=== PATIENT | male | born 1950 | race Caucasian/White ===

== ENCOUNTER → 2023-06-12 | Emergency (ER) | payer OTHER ==
[~2023-06-12] MED LIST: ASPIRIN 81 MG CHEWABLE TABLET ONE; AZITHROMYCIN 500 MG INJ IVPB ONE; CEFTRIAXONE 1000 MG/VIAL ONE; LABETALOL 20 MG/4ML SYRINGE IV ONE; NA CHLORIDE 0.9% 1,000 ML ONE; NA CHLORIDE 0.9% 250 ML ONE; POTASSIUM CL SA 10 MEQ TAB PO ONE
--- NOTE | 2023-06-12 15:18 | RAD REPORT ---
EXAM DESCRIPTION: Daniel Single View06/12/2023 3:06 pm CLINICAL HISTORY: eval for pna COMPARISON: No comparisons TECHNIQUE: Portable AP view of the chest. FINDINGS: Faint right midlung perihilar opacity with prominence of the right hilum as well, findings may represent central airspace opacification in the setting of pneumonia, although possibility of a mass with adjacent hilar adenopathy cannot be excluded. Possible opacity versus prominent costochondr al junction projecting at the right lower lung. No pneumothorax or effusion. The cardiomediastinal c ontours are otherwise unremarkable. IMPRESSION: Right hilar and mid to lower lung parenchymal abnormalities as above.
[2023-06-12 16:03] LABS: Absolute Lymphocytes (CBC) 2.4 K/uL (0.7-4.9); Hematocrit 41.2 % (39.6-49.0); Lymphocytes % 26.2 % (15.3-44.8); MCV 88.9 fL (80-100); MPV 7.8 fL (7.6-11.3); Platelets 340 thou/uL (152-406); RBC Red Blood Cell Count 4.64 M/uL (4.33-5.43)
[2023-06-12 16:23] LABS: Bilirubin Total 0.6 mg/dL (0.2-1.0); Potassium 2.7 mEq/L (3.5-5.1); Protein, Total 10.4 g/dL (6.4-8.2)
[2023-06-12 16:27] LABS: Troponin High Sensitivity 72.8 pg/mL (<58.9)
--- NOTE | 2023-06-12 17:28 | RAD REPORT ---
EXAM DESCRIPTION: CT - Head Brain Wo Cont - 06/12/2023 4:48 pm CLINICAL HISTORY: AMS COMPARISON: No comparisons TECHNIQUE: Noncontrast head CT images were obtained without IV contrast. Multiplanar reformats were generated and reviewed. All CT scans are performed using dose optimization technique as appropriate and may include automated exposure control or mA/KV adjustment according to patient size. FINDINGS: No intracranial hemorrhage, mass, or edema. Midline structures are unremarkable. Mild diffuse parenchymal volume loss commensurate with age. Ventricular caliber otherwise within norm al limits. Punctate focus of near CSF density in the right sub insular region, nonspecific but may represent a p rominent perivascular space. Hamilton-white matter differentiation is otherwise preserved, without eviden ce of acute infarct. No abnormal extra-axial fluid collections. Mastoid air cells and visualized portions of the paranasal sinuses are clear. No acute bony findings. IMPRESSION: No evidence of an acute intracranial process. Findings as above.
--- NOTE | 2023-06-12 17:40 | RAD REPORT ---
EXAM DESCRIPTION: CT - Head angio - 06/12/2023 4:48 pm CLINICAL HISTORY: MENTAL STATUS CHANGE COMPARISON: Head Brain Wo Cont dated 06/12/2023; Neck Angio dated 06/12/2023 TECHNIQUE: Axial CT angiography images of the head was performed with multiplanar and maximum intens ity projection reconstructions. Images performed following intravenous administration of 95mL Isovue 370. All CT scans are performed using dose optimization technique as appropriate and may include automated exposure control or mA/KV adjustment according to patient size. FINDINGS: No evidence of large vessel occlusion. Bilobed anterior communicating artery aneurysm proj ecting intra inferiorly and slightly to the right measuring 9 x 5 millimeter in greatest AP and CC di mensions, and 7 millimeter in transverse dimension. No evidence of dissection flap is detected. No fl ow-limiting stenosis or vascular malformation identified. Antegrade flow is seen in the vertebral arteries. The vertebral arteries are codominant. The visualized dural venous sinuses are grossly patent. IMPRESSION: No evidence of large vessel occlusion or flow-limiting stenosis. 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 The findings were communicated to Nadeem Browning on 06/12/2023 at 17:36 hours.
--- NOTE | 2023-06-12 17:45 | RAD REPORT ---
EXAM DESCRIPTION: CT - Neck Angio - 06/12/2023 4:48 pm CLINICAL HISTORY: AMS COMPARISON: No comparisons TECHNIQUE: Axial CT angiography images of the head was performed with multiplanar and maximum intens ity projection reconstructions. Images performed following intravenous administration of 95mL Isovue 370. All CT scans are performed using dose optimization technique as appropriate and may include automated exposure control or mA/KV adjustment according to patient size. Quantification of carotid stenosis, if any, is performed according to NASCET criteria. FINDINGS: A left aortic arch is identified with normal three vessel configuration of the great vesse ls. Dense venous contrast within the left innominate vein and internal jugular vein results of pronou nced streak artifact which obscures evaluation of segments of the left subclavian and left common car otid arteries. Somewhat limited evaluation of the left vertebral artery is well given densely opacifi ed venous collaterals. No significant flow abnormality is seen of the common carotid bilaterally. Predominantly calcified atherosclerotic plaque at the right carotid bifurcation, with narrowest lumin al diameter 1.6 mm compared to 4.2 mm distally, amounting to 62% stenosis by NASCET criteria. No sign ificant stenosis is identified involving the cervical segments of the left internal carotid artery. Normal flow is seen within both vertebral arteries. Lobulated enhancing right paratracheal partially imaged mass measuring 3.7 x 2.7 cm. Mild centrilobul ar and paraseptal emphysematous changes IMPRESSION: Up to 62% proximal right ICA stenosis. Other major cervical vessels are patent, although dense venous contrast results in streak artifact wh ich obscures evaluation of segments of the left subclavian and common carotid arteries. Limited evalu ation of the left vertebral artery given densely opacified venous collaterals as well. Incidentally noted partially included right paratracheal mass which may relate to pathologic adenopat hy. Please correlate clinically, and consider additional evaluation by dedicated chest CT, which can be performed on a nonemergent basis. CAROTID STENOSIS REFERENCE USING NASCET CRITERIA: % ICA stenosis = (1 - narrowest ICA diameter/diameter of distal cervical ICA) x 100. Mild - <50% stenosis. Moderate - 50-69% stenosis. Severe - 70-94% stenosis. Near occlusion - 95-99% stenosis. Occluded - 100% stenosis.
--- NOTE | 2023-06-12 17:53 | ER ---
Nurse's Notes [facility] Name: Francisco Ford Age: 72 yrs Sex: Male : 1950 Arrival Date: 06/12/2023 Time: 14:34 Bed 5 Private MD: Diagnosis: Cerebral aneurysm, nonruptured;Unspecified bacterial pneumonia;Altered mental status, unspecified;Hypokalemia Presentation: 06/12 14:50 Chief complaint: Patient states: he has been confused since [place]. Patient ap3 complains of frequent urination. Coronavirus screen: At this time, the client does not indicate any symptoms associated with coronavirus-19. Ebola Screen: No symptoms or risks identified at this time. Initial Sepsis Screen: Does the patient meet any 2 criteria? HR > 90 bpm. No. Patient's initial sepsis screen is negative. Does the patient have a suspected source of infection? No. Patient's initial sepsis screen is negative. Risk Assessment: Do you want to hurt yourself or someone else? Patient reports no desire to harm self or others. Onset of symptoms was March 2023. 14:50 Method Of Arrival: Wheelchair ap3 14:50 Acuity: LORAINE 2 ap3 Triage Assessment: 14:53 General: Appears in no apparent distress. Behavior is cooperative. Pain: Denies pain. ap3 Neuro: Level of Consciousness is awake, alert, obeys commands, Oriented to person, Speech is normal, Reports confusion . Cardiovascular: Patient's skin is warm and dry. Respiratory: Airway is patent Respiratory effort is even, unlabored, Respiratory pattern is regular, symmetrical. : Reports urinary frequency. Historical: - Allergies: 14:53 cetirizine; ap3 - Home Meds: 14:53 amlodipine oral [Active]; ap3 - PMHx: 14:53 Hypertensive disorder; ap3 - Immunization history:: Client reports receiving the 2nd dose of the Covid vaccine, Flu vaccine is up to date. - Social history:: Smoking status: Patient/guardian denies using tobacco. Screenin:56 [facility] ED Fall Risk Assessment (Adult) History of falling in the last 3 months, ap3 including since admission Yes- fall prone (multiple falls) (3 pts) Confusion or Disorientation Yes (5 pts) Intoxicated or Sedated No (0 pts) Impaired Gait Yes (1 pt) Mobility Assist Device Used Yes (1 pt) Altered Elimination No (0 pt) Score/Fall Risk Level 3 or more points = High Risk. Abuse screen: Denies threats or abuse. Nutritional screening: No deficits noted. Tuberculosis screening: No symptoms or risk factors identified. Assessment: 18:00 General: Appears in no apparent distress. comfortable, Behavior is calm, cooperative, nj1 appropriate for age. 18:00 Pain: Denies pain. Neuro: Level of Consciousness is awake, alert, obeys commands, nj1 Oriented to person, situation, Reports Malaise. Cardiovascular: Patient's skin is warm and dry. Respiratory: Airway is patent Respiratory effort is even, unlabored. 19:12 Reassessment: Patient appears in no apparent distress at this time. Patient and/or nj1 family updated on plan of care and expected duration. Pain level reassessed. Kiki Cortez, friend/roommate, in room, update given. 19:43 Reassessment: [facility] here to transport patient. Report given to Tamie CHASE. nj1 Vital Signs: 14:50 BP 163 / 110; Pulse 99; Resp 17; Pulse Ox 96% on R/A; ap3 17:55 BP 170 / 92; Pulse 76; Resp 18; Pulse Ox 95% ; nj1 18:43 BP 179 / 92; Pulse 73; Resp 18; Pulse Ox 96% ; nj1 19:15 BP 146 / 82; Pulse 72; Resp 18; Pulse Ox 96% on R/A; nj1 ED Course: 14:39 Patient arrived in ED. mg5 14:41 Salvador Husain MD is Attending Physician. ec2 14:52 Triage completed. ap3 14:56 Arm band placed on left wrist. ap3 15:08 CXR XRAY In Process Unspecified. EDMS 15:49 Initial lab(s) drawn, by ar, sent to lab. Inserted saline lock: 22 gauge in left jg11 forearm, using aseptic technique. 16:48 Melanie Willard, TEJAL is Primary Nurse. nj1 16:50 CT Head Angio In Process Unspecified. EDMS 16:50 CT Neck Angio In Process Unspecified. EDMS 16:50 CT Head Brain wo Cont In Process Unspecified. EDMS 18:00 Patient has correct armband on for positive identification. Bed in low position. Call nj1 light in reach. 18:00 Provided Education on: call light, fall precautions. nj1 18:09 attempted to initiate a transfer with [facility] after ringing for 3 eb minutes call was disconnected. 18:13 transfer initiated by Jorge with Kindra Boyer Rn from [facility]. eb 19:00 Report given to Maximiliano Calle RN. nj1 19:20 No provider procedures requiring assistance completed. Patient transferred, IV remains nj1 in place. Administered Medications: 17:59 Drug: Rocephin IV 1 grams IV at calculated rate once; Given slow IV push per pharmacy nj1 instructions Route: IV; Rate: calculated rate; Site: left forearm; 17:59 Drug: NS 0.9% IV 1000 ml IV at 1 bolus Per protocol; 1000 mL bolus Route: IV; Rate: 1 nj1 bolus; Site: left forearm; 17:59 Drug: Aspirin PO Chewable Tablet 324 mg PO once; 81 mg tablets x 4 Route: PO; nj1 18:00 Drug: Potassium Chloride PO 40 mEq PO once Route: PO; nj1 18:02 Drug: AZITHromycin IVPB 500 mg IVPB once over 1 hrs; (mix in 250 mL NS) Route: IVPB; nj1 Infused Over: 1 hrs; Site: left forearm; 18:43 Drug: Labetalol IV 10 mg IV at bolus once Route: IV; Rate: bolus; Site: left forearm; nj1 Medication: 19:22 VIS not applicable for this client. nj1 Outcome: 17:52 ER care complete, transfer ordered by . ec2 18:56 Transferred by ground EMS to [facility], Transfer form completed. Note: nj1 Report called to Price TOURE 18:56 Condition: stable nj 18:56 Instructed on the need for transfer, 19:55 Patient left the ED. lg3 Signatures: Dispatcher [employer] EDAna Martinez RN RN elvis3 Brianda Malone Lacie RN RN lg3 Melanie Willard RN RN roland1 Ashwini Caputo mg5 Salvador Husain MD MD ec2 Yoel Olivera jg11 Corrections: (The following items were deleted from the chart) 19:12 18:00 Neuro: Level of Consciousness is awake, alert, obeys commands, Oriented to nj person, place, situation, Reports Malaise. nj1 19:35 19:12 Reassessment: Friend/roommate, Kiki Cortez, in room with patient. Update nj1 given. nj1
--- NOTE | 2023-06-12 17:53 | EDPHYS ---
Physician Documentation [facility] Name: Francisco Ford Age: 72 yrs Sex: Male : 1950 Arrival Date: 06/12/2023 Time: 14:34 Bed 5 Private MD: ED Physician Salvador Husain HPI: 06/12 14:56 This 72 yrs old Male presents to ER via Wheelchair with complaints of Altered ec2 Mental Status. 14:56 Patient arrives today for evaluation of altered mental status. Patient has been having ec2 3 months of general decline. Patient been having increasing forgetfulness, having occasional falls as well. Patient denies any fevers or chills, denies any chest pain or difficulty breathing, denies abdominal pain. Does complain of increased urinary frequency.. Historical: - Allergies: 14:53 cetirizine; ap3 - Home Meds: 14:53 amlodipine oral [Active]; ap3 - PMHx: 14:53 Hypertensive disorder; ap3 - Immunization history:: Client reports receiving the 2nd dose of the Covid vaccine, Flu vaccine is up to date. - Social history:: Smoking status: Patient/guardian denies using tobacco. ROS: 14:56 Constitutional: as per hpi ec2 Exam: 14:56 Constitutional: GEN: NAD Head: atraumatic Eyes: EOMI Ears: External ears are ec2 normal. CV: regular rate LUNGS: no respiratory distress ABD: non-distended SKIN: no evidence of rashes MSK: no evidence of trauma NEURO: Confused individual, moves all extremities equally, cranial nerves II through XII intact, strength intact all 4 extremities 17:52 Radiologist reports: as per mdm ec2 Vital Signs: 14:50 BP 163 / 110; Pulse 99; Resp 17; Pulse Ox 96% on R/A; ap3 17:55 BP 170 / 92; Pulse 76; Resp 18; Pulse Ox 95% ; nj1 18:43 BP 179 / 92; Pulse 73; Resp 18; Pulse Ox 96% ; nj1 19:15 BP 146 / 82; Pulse 72; Resp 18; Pulse Ox 96% on R/A; nj1 MDM: 14:45 Patient medically screened. ec2 14:56 Data reviewed: vital signs. ED course: Patient arrives today for evaluation of altered ec2 mental status. Examination remarkable for well-appearing nontoxic in which was otherwise in no acute distress with a reassuring neurologic examination. Will obtain lab work, EKG, chest x-ray, intracranial imaging as well. Currently considering processes such as UTI, pneumonia, low suspicion for stroke.. 16:44 ED course: Metabolic profile shows hypokalemia with potassium of 2.7. Troponin elevated ec2 at 72.8. CBC is reassuring. Chest x-ray shows right-sided opacities. Ammonia level within normal ranges. . 17:39 ED course: EKG independently reviewed and interpreted by me, shows normal sinus rhythm, ec2 first-degree AV block, no ST segment elevations, intervals are nonconcerning.. 17:51 ED course: CT angio of the head and neck shows bilobed anterior communicating artery ec2 aneurysm at 9 mm in size. Additionally paratracheal mass noted, will have him follow-up with his primary care doctor for that specifically. Ultimately patient with altered mental status that require admission for encephalopathy, pneumonia. Unclear what the clinical significance is of the aneurysm however I will transfer the patient for further neuro/interventional evaluation. . 18:15 ED course: Unable to transfer to Critical access hospital, will attempt [facility] ec2 system.. 18:19 ED course: I discussed case with Dr. Keller, neuro ICU who agrees to except patient ec2 for transfer. Patient updated regarding plan of care.. 06/12 14:55 Order name: CBC with Diff; Complete Time: 16:43 ec06/12 14:55 Order name: CMP; Complete Time: 16:43 ec2 06/12 14:55 Order name: AMMONIA; Complete Time: 16:43 ec2 06/12 14:55 Order name: Troponin HS; Complete Time: 16:43 ec2 06/12 14:55 Order name: CXR XRAY; Complete Time: 16:43 ec2 06/12 14:55 Order name: CT Head Angio; Complete Time: 17:50 ec2 06/12 14:55 Order name: CT Neck Angio; Complete Time: 17:50 ec2 06/12 14:55 Order name: CT Head Brain wo Cont; Complete Time: 17:40 ec2 06/12 14:55 Order name: EKG; Complete Time: 14:56 ec2 06/12 14:55 Order name: EKG - Nurse/Tech; Complete Time: 17:25 ec2 Administered Medications: 17:59 Drug: Rocephin IV 1 grams IV at calculated rate once; Given slow IV push per pharmacy nj1 instructions Route: IV; Rate: calculated rate; Site: left forearm; 17:59 Drug: NS 0.9% IV 1000 ml IV at 1 bolus Per protocol; 1000 mL bolus Route: IV; Rate: 1 nj1 bolus; Site: left forearm; 17:59 Drug: Aspirin PO Chewable Tablet 324 mg PO once; 81 mg tablets x 4 Route: PO; nj1 18:00 Drug: Potassium Chloride PO 40 mEq PO once Route: PO; nj1 18:02 Drug: AZITHromycin IVPB 500 mg IVPB once over 1 hrs; (mix in 250 mL NS) Route: IVPB; nj1 Infused Over: 1 hrs; Site: left forearm; 18:43 Drug: Labetalol IV 10 mg IV at bolus once Route: IV; Rate: bolus; Site: left forearm; nj1 Disposition Summary: 06/12/23 17:52 Transfer Ordered Notes: Reason: Higher level of care ec2 Condition: Stable ec2 Problem: new ec2 Symptoms: are unchanged ec2 Transfer Location: [facility](06/12/23 18:19) ec2 Accepting Physician: Dr. Keller(06/12/23 19:55) lg3 Diagnosis - Cerebral aneurysm, nonruptured ec2 - Unspecified bacterial pneumonia ec2 - Altered mental status, unspecified ec2 - Hypokalemia ec2 Forms: - Medication Reconciliation Form ec2 - SBAR form ec2 Signatures: Dispatcher [employer] EDAna Martinez RN RN ap3 Juanita Olson RN RN lg3 Melanie Willard RN RN nj1 Salvador Husain MD MD ec2 Corrections: (The following items were deleted from the chart) 15:00 15:00 Patient medically screened. ec2 ec2 18:15 18:15 ED course: Unable to transfer to Critical access hospital, will attempt [facility] ec2 system.. ec2 18:19 17:52 transferring doc ec2 ec2 18:19 17:52 Other Acute Care Facility ec2 ec2 18:32 14:56 Brain Wo Cont+MRI.RAD.BRZ ordered. EDNH EDMS 19:55 18:19 Dr. Keller ec2 lg3
[2023-06-12 23:46] VITALS: BP 146/82; O2SAT 96
--- NOTE | 2023-06-15 17:00 | EKG ---
Test Date: 2023-06-12 Test Time: 17:23:02 Nitrocellulose Maker: CHRISTIANO MEASUREMENT RESULTS: Intervals: Rate: 80 FL: 244 QRSD: 110 QT: 364 QTc: 419 [place]: P: 71 FL: 244 QRS: 91 T: 69 INTERPRETIVE STATEMENTS: Sinus rhythm with 1st degree AV block Rightward axis Nonspecific ST abnormality Abnormal ECG No previous ECG available for comparison Electronically Signed On 06-15-23 16:53:31 PLASTIC PRINTER by Waldemar Weiner
== END ==
LOC: ER 14:34
DX: I67.1 Cerebral aneurysm, nonruptured (principal); J15.9 Unspecified bacterial pneumonia; E87.6 Hypokalemia; I10 Essential (primary) hypertension; Z79.899 Other long term (current) drug therapy; Z88.8 Allergy status to other drugs, medicaments and biological substances
CPT/HCPCS: 85025; 36415; 82140; 84484; 80053; 70450; 70496; 70498; 71045; 96375; 96374; 99285; Q9967; J7050; J7030; J0696; 93005